=== PATIENT | female | born 1985 | race Two or more races ===

== ENCOUNTER 2024-03-04 17:22 | Emergency (ER) | payer MEDICAID, SELFPAY ==
[2024-03-04 17:23] VITALS: BMI 48.1
[2024-03-04 18:13] VITALS: BP 165/97; PULSE 103; RESP 18; TEMP 37.2; O2SAT 100
--- NOTE | 2024-03-04 18:21 | EKG_ITS ---
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
--- NOTE | 2024-03-04 18:40 | XR_ITS ---
Examination: PA lateral chest 2 views Technique: Upright PA lateral chest 2 views Exam date and time: March 04, 2024 1852 hrs. Comparison December 12, 2021 Indications: Chest pain beginning one week ago. Findings: Normal heart size Lungs are clear. The osseous structures are intact Impression: No active disease
--- NOTE | 2024-03-04 18:40 | EDRME_ITS ---
Rapid Medical Screening Exam [facility] Arrival date/time: 03/04/24 17:22 38F with history of HTN presents to ED with 1 week of cough and some CP, SOB, and heart palps. Chief Complaint: Chest Pain Time Seen by Provider: 03/04/24 18:24 Vital signs: Vital Signs Temperature 98.9 F 03/04/24 18:13 Pulse Rate 103 H 03/04/24 18:13 Respiratory Rate 18 03/04/24 18:13 Blood Pressure 165/97 H 03/04/24 18:13 Pulse Oximetry (%) 100 03/04/24 18:13 Oxygen Delivery Method Room Air 03/04/24 18:13
[2024-03-04 19:17] LABS: Basophils # (Auto) 0.1 Thou/mm3 (0.0-0.2); Basophils % (Auto) 1 % (0-2.5); Eosinophils # (Auto) 0.1 Thou/mm3 (0.0-0.5); Eosinophils % (Auto) 1 % (0-10); Hematocrit 37.2 % (36.0-46.0); Hemoglobin 12.7 g/dL (12.0-16.0); Immature Granulocytes % (Auto) 0 % (0-0); Immature Granulocytes Auto 0.02 Thou/mm3 (0.00-0.00); Lymphocytes # (Auto) 2.7 Thou/mm3 (1.0-4.8); Lymphocytes % (Auto) 26 % (10-50); Mean Corpuscular HGB Conc 34.1 g/dl (31.0-37.0); Mean Corpuscular Hemoglobin 29.3 pg (25.0-35.0); Mean Corpuscular Volume 86 fL (80-100); Monocytes # (Auto) 0.6 Thou/mm3 (0.0-0.8); Monocytes % (Auto) 6 % (0-12); Neutrophils # (Auto) 6.9 Thou/mm3 (1.8-7.7); Neutrophils % (Auto) 66 % (37-80); Nucleated Red Blood Cell % 0 /100 WBC (0); Platelet Count 318 Thou/mm3 (140-440); RDW Standard Deviation 42.3 fL (36.4-46.3); Red Blood Count 4.34 Miln/mm3 (4.00-5.20); White Blood Count 10.4 Thou/mm3 (3.6-11.0)
[2024-03-04 19:47] LABS: Collection Type, Urine Clean Catch
[2024-03-04 19:55] LABS: Alanine Aminotransferase 18 U/L (10-49); Albumin, Serum 4.8 gm/dL (3.5-5.0); Albumin/Globulin Ratio 1.5 (1.2-2.2); Alkaline Phosphatase 91 U/L (46-116); Anion Gap 8 (7-16); Aspartate Amino Transferase < 10 U/L (0-34); BUN/Creatinine Ratio 10 Ratio (12-20); Bilirubin,Total 0.5 mg/dL (0.3-1.2); Blood Urea Nitrogen 6 mg/dL (9-23); Calcium 9.6 mg/dL (8.3-10.6); Calcium (Corrected) 9.6 mg/dL (8.5-10.1); Chloride 103 mMol/L (98-107); Creatinine (Component) 0.6 mg/dL (0.6-1.3); Estimated Creatinine Clearance 156.1 mL/min (>60); Globulin 3.3 gm/dL (2.3-3.5); Glucose 94 mg/dL (74-106); Osmolality,Calculated 271 (275-295); Potassium 4.2 mMol/L (3.4-5.1); Sodium 137 mMol/L (136-145); Total Protein 8.1 gm/dL (5.7-8.2); Troponin I < 0.002 ng/mL (0.0-0.045); eGFR > 60 See Note
[2024-03-04 20:02] LABS: Bilirubin,Urine Negative (Negative); Blood,Urine Negative (Negative); Clarity,Urine Clear (Clear/Hazy); Color,Urine Colorless (Lt Yel-Yel); Glucose, Urine Negative (Negative); Ketones,Urine Negative (Negative); Leukocyte Esterase,Urine Negative (Negative); Nitrite,Urine Negative (Negative); PH,Urine 6.5 (5.0-7.0); Protein,Urine Negative (Neg - Trace); RBC,Urine < 1 /hpf (0-3); Specific Gravity,Urine 1.005 (1.001-1.035); Squamous Epithelial Cell,Urine < 1 /hpf (0-5); Urobilinogen,Urine Negative mg/dL (0.0-1.0); WBC,Urine < 1 /hpf (0-5)
[2024-03-04 20:06] LABS: Amphetamine/Methamp Scrn,U Negative (Negative); Barbiturate Screen,Urine Negative (Negative); Benzodiazepines Screen,Urine Negative (Negative); Benzoylecgonine Screen, Ur Negative (Negative); Fentanyl Screen,Urine Negative (Negative); Opiate Screen,Urine Negative (Negative); THC Screen,Urine Negative (Negative)
[2024-03-04 20:16] LABS: HCG Qualitative,Urine Negative
[2024-03-04 21:25] VITALS: BP 158/87; PULSE 87; RESP 20; TEMP 36.7; O2SAT 99
--- NOTE | 2024-03-04 21:25 | EDNOTE_ITS ---
ED General RME/HPI General Chief complaint: Chest Pain Stated complaint: L CHEST PAIN; PALPITATIONS @ 1400; SOB Time Seen by Provider: 03/04/24 18:24 Arrival date/time: 03/04/24 17:22 RME / HPI RME / HPI narrative: 38-year-old female patient with significant history of hypertension, came in for evaluation regarding palpitation, comes and goes, associated with shortness of breath, left-sided chest pain, nonproductive cough, sputum going for the last 1 week. It comes and goes, lasting for several minutes. Patient denies any other complaints. Denies any other complaints. Related Data Previous Rx's ?Medication ?Instructions ?Recorded albuterol sulfate 90 mcg/actuation 1 inh inhalation QID PRN shortness 12/05/19 aerosol inhaler (Ventolin HFA) of breath or wheezing #6.7 grams azithromycin 500 mg tablet See Rx Instructions PO .COMPLEX #3 12/05/19 tabs cephalexin 500 mg capsule 500 mg PO QID #40 caps 10/04/20 hydrocodone 5 mg-acetaminophen 325 1 tab PO BID PRN pain #14 tabs 10/04/20 mg tablet ibuprofen 800 mg tablet (IBU) 800 mg PO TID PRN fever or pain 10/04/20 #30 tabs ondansetron 4 mg disintegrating 4 mg PO Q8H PRN nausea and 11/14/21 tablet vomiting #15 tabs ibuprofen 600 mg tablet 600 mg PO TID PRN pain #30 tabs 12/27/22 acetaminophen 500 mg capsule 1,000 mg (2 x 500 mg) PO Q6H PRN 03/31/23 fever or pain #30 caps ibuprofen 800 mg tablet 800 mg PO TID PRN pain #30 tabs 03/31/23 tamsulosin 0.4 mg capsule (Flomax) 0.4 mg PO QDAY #14 caps 03/31/23 Allergies Allergy/AdvReac Type Severity Reaction Status Date / Time No Known Allergies Allergy Verified 03/04/24 17:26 Review of Systems Review of Systems Narrative Review of Systems: Review of system reviewed and within normal limits except mentioned in HPI ED Exam Narrative Physical exam: VITAL SIGNS: Reviewed. GENERAL APPEARANCE: Alert and interactive, follows commands, no acute distress, HEAD AND FACE: Non-traumatic. ENT: PERRL, pink conjunctivitis, eyelid no trauma, Mucous membrane moist. NECK: Supple, nontender, no nuchal rigidity. CHEST: No tenderness, no crepitus, no paradoxical movement, no retractions. LUNGS: Clear, well ventilated, symmetric, no rales, no wheezing, no ronchi, no stridor, good breath sounds bilaterally. HEART: Regular rate, regular rhythm, no murmur, no gallops. ABDOMEN: Soft, positive bowel sounds, nondistended, no guarding, nontender, no rebound, no masses, RECTAL: Deferred. GENITAL: Deferred. NEUROLOGICAL: Gross motor function intact sensory function intact, Appropriate for age. MUSCULOSKELETAL: low back nontender, full range of motion. EXTREMITIES: Nontender, full range of motion. SKIN: Color pink, dry, no rash, no lacerations, no abrasions, no contusions. LYMPHATICS: Deferred. Course Quality Measures none Orders Category Date Time Status Bedside COVID-19 Antigen Test NOW Care 03/04/24 18:40 Active Bedside Influenza A&B Antigen Test NOW Care 03/04/24 18:40 Completed EKG (ED ONLY) *Do not use* NOW Care 03/04/24 18:21 Completed EKG (ED Only) Stat Exams 03/04/24 18:21 Draft XR chest 2V Stat Exams 03/04/24 18:40 Completed CBC Stat Lab 03/04/24 18:50 Completed Comprehensive Metabolic Panel Stat Lab 03/04/24 18:50 Completed Drug Screen,Urine Stat Lab 03/04/24 19:12 Completed HCG Qualitative,Urine Stat Lab 03/04/24 19:12 Completed Troponin I Stat Lab 03/04/24 18:50 Completed Urinalysis Stat Lab 03/04/24 19:12 Completed Vital Signs Vital signs: Vital Signs Temperature 98.9 F 03/04/24 18:13 Pulse Rate 103 H 03/04/24 18:13 Respiratory Rate 18 03/04/24 18:13 Blood Pressure 165/97 H 03/04/24 18:13 Pulse Oximetry (%) 100 03/04/24 18:13 Oxygen Delivery Method Room Air 03/04/24 18:13 [facility] Patient data External records reviewed:: None Clinical information provided by:: patient Social determinants that could affect healthcare access:: none Patient has the following chronic illnesses:: None How is presenting disease/condition affected by chronic disease/condition?: no chronic disease Evaluation data The following diagnostics were reviewed and interpreted by me:: lab results, radiology exam(s) and EKG tracing(s) Lab and/or radiology exams considered but not ordered:: None Interpretation Summary: EKG as interpreted by me showed normal sinus rhythm, ventricular rate of 84 beats per minute, no ST segment elevation or depression noted. My imaging finding. Laboratory workup including troponin is normal. Medications Medications considered but not ordered:: None Medication administrations:: None Consultations Consultation(s) initiated? (list below): No Diagnosis Differential Diagnosis ED Complaint MDM: Palpitation, chest pain, shortness of breath Most likely diagnosis given after review of the tests above:: Pelvic lesion, Admission Indicated Admission indicated?: not indicated Explain why admission is indicated or not indicated:: Stable for discharge Admission Request Was there a request for admission?: No Disposition Plan Disposition Plan: Discharge Discharge Attestation Discharge Attestation: The patient was given an opportunity to ask questions and understood the discharge instructions. Discharge instructions specifically effects, indications for sooner follow up or return to the emergency department, and the expected course of current diagnosis. Patient condition: Stable Medical Decision Making Differential Diagnosis Differential Diagnosis: Palpitation, chest pain, shortness of breath Lab Data 03/04/24 18:50 03/04/24 18:50 Labs: Lab Results 03/04/24 03/04/24 Range/Units 18:50 19:12 WBC 10.4 (3.6-11.0) Thou/mm3 RBC 4.34 (4.00-5.20) Miln/mm3 Hgb 12.7 (12.0-16.0) g/dL Hct 37.2 (36.0-46.0) % MCV 86 (80-100) fL MCH 29.3 (25.0-35.0) pg MCHC 34.1 (31.0-37.0) g/dl RDW Std Deviation 42.3 (36.4-46.3) fL Plt Count 318 (140-440) Thou/mm3 Neut % (Auto) 66 (37-80) % Lymph % (Auto) 26 (10-50) % [place] % (Auto) 6 (0-12) % Eos % (Auto) 1 (0-10) % Baso % (Auto) 1 (0-2.5) % Neut # (Auto) 6.9 (1.8-7.7) Thou/mm3 Lymph # (Auto) 2.7 (1.0-4.8) Thou/mm3 [place] # (Auto) 0.6 (0.0-0.8) Thou/mm3 Eos # (Auto) 0.1 (0.0-0.5) Thou/mm3 Baso # (Auto) 0.1 (0.0-0.2) Thou/mm3 Immature Gran # (Auto) 0.02 H (0.00-0.00) Thou/mm3 Absolute Nucleated RBC 0.00 (0.00-0.00) Thou/mm3 Immature Gran % 0 (0-0) % Nucleated RBC % 0 (0) /100 WBC Sodium 137 (136-145) mMol/L Potassium 4.2 (3.4-5.1) mMol/L Chloride 103 (98-107) mMol/L Carbon Dioxide 26.0 (20.0-31.0) mMol/L Anion Gap 8 (7-16) BUN 6 L (9-23) mg/dL Creatinine 0.6 (0.6-1.3) mg/dL Estim Creat Clear Calc 156.1 (>60) mL/min eGFR > 60 (60 - ) See Note BUN/Creatinine Ratio 10 L (12-20) Ratio Glucose 94 (74-106) mg/dL Calculated Osmolality 271 L (275-295) Calcium 9.6 (8.3-10.6) mg/dL Corrected Calcium 9.6 (8.5-10.1) mg/dL Total Bilirubin 0.5 (0.3-1.2) mg/dL AST < 10 (0-34) U/L ALT 18 (10-49) U/L Alkaline Phosphatase 91 (46-116) U/L Troponin I < 0.002 (0.0-0.045) ng/mL Total Protein 8.1 (5.7-8.2) gm/dL Albumin 4.8 (3.5-5.0) gm/dL Globulin 3.3 (2.3-3.5) gm/dL Albumin/Globulin Ratio 1.5 (1.2-2.2) Ur Collection Type Clean Catch Urine Color Colorless A (Lt Yel-Yel) Urine Clarity Clear (Clear/Hazy) Urine pH 6.5 (5.0-7.0) Ur Specific [place] 1.005 (1.001-1.035) Urine Protein Negative (Neg - Trace) Urine Glucose (UA) Negative (Negative) Urine Ketones Negative (Negative) Urine Blood Negative (Negative) Urine Nitrite Negative (Negative) Urine Bilirubin Negative (Negative) Urine Urobilinogen (Auto) Negative (0.0-1.0) mg/dL Ur Leukocyte Esterase Negative (Negative) Urine RBC < 1 (0-3) /hpf Urine WBC < 1 (0-5) /hpf Ur Squamous Epith Cells < 1 (0-5) /hpf Urine Bacteria None (None) Urine HCG, Qual Negative Urine Opiates Screen Negative (Negative) Urine Fentanyl Screen Negative (Negative) Ur Barbiturates Screen Negative (Negative) U Amphetamin/Meth Scrn Negative (Negative) U Benzodiazepines Scrn Negative (Negative) U Cocaine Metab Screen Negative (Negative) U Marijuana (THC) Screen Negative (Negative) Discharge Plan Plan Patient Disposition: HOME (Self Care) Disposition Comment: Stable Prescriptions/Referrals Prescriptions/Med Rec: No Action cephalexin 500 mg capsule 500 mg PO QID Qty: 40 0RF ibuprofen [IBU] 800 mg tablet 800 mg PO TID PRN (Reason: fever or pain) Qty: 30 0RF hydrocodone-acetaminophen 5-325 mg tablet 1 tab PO BID MDD 3 PRN (Reason: pain) Qty: 14 0RF azithromycin 500 mg tablet See Rx Instructions .ROUTE .COMPLEX Qty: 3 0RF Rx Instructions: take 500 mg today (day 1), then 250 mg for 4 days (days 2-5) albuterol sulfate [Ventolin HFA] 90 mcg/actuation HFA aerosol inhaler 1 inh IH QID PRN (Reason: shortness of breath or wheezing) Qty: 6.7 0RF ondansetron 4 mg tablet,disintegrating 4 mg PO Q8H PRN (Reason: nausea and vomiting) Qty: 15 0RF ibuprofen 600 mg tablet 600 mg PO TID PRN (Reason: pain) Qty: 30 0RF acetaminophen 500 mg capsule 1,000 mg PO Q6H PRN (Reason: fever or pain) Qty: 30 0RF ibuprofen 800 mg tablet 800 mg PO TID PRN (Reason: pain) Qty: 30 0RF tamsulosin [Flomax] 0.4 mg capsule 0.4 mg PO QDAY Qty: 14 0RF Rx Instructions: administer 30 minutes after same meal each day; swallow whole with liquid; do not crush/chew/dissolve/open Referrals: Amanda Burgess FNP [Primary Care Provider] - In 1 week Problem List Clinical Impression: Palpitation Patient/Caregiver Discharge Instructions Discharge Activity: activity as tolerated Education Materials: ED Palpitations Additional Instructions: Thank you for the opportunity for serving you today. You are stable for discharged . You are advised to: Follow-up with your PCP in 1 to 2 days Return to ED for worsening of symptoms Print Language: Mohawk Stand Alone Forms: Salud Award Info., Patient Portal Info Letter BEV/JOSE ALBERTO Supervising Physician BEV/JOSE ALBERTO Supervising Physician: MD Jordyn
[2024-03-04 21:32] VITALS: BP 137/64; PULSE 89; RESP 19; TEMP 36.6; O2SAT 99
== END 2024-03-04 21:32 | disposition home or self-care (01) ==
PROVIDERS: Physician Assistant; Emergency Provider Emergency Medicine; PCP Registered Nurse Community Health
DX: R00.2 Palpitations (principal); R07.89 Other chest pain
CPT/HCPCS: 36415; 71046; 80053; 80307; 81001; 81025; 84484; 85025; 87400; 87811; 93005; 99283

== ENCOUNTER 2024-05-27 12:35 | Emergency (ER) | payer MEDICAID, SELFPAY ==
[2024-05-27 12:47] VITALS: BP 189/108; PULSE 101; RESP 18; TEMP 37; O2SAT 96; BMI 47.5
--- NOTE | 2024-05-27 13:00 | PD.EDADULT ---
ED General RME/HPI General Chief complaint: General Adult/Misc Complain Stated complaint: SHAKING, TROUBLE BREATHING Time Seen by Provider: 05/27/24 12:59 Arrival date/time: 05/27/24 12:35 CC: Intermittent chest pain HPI ongoing for the past 1 week, currently no chest pain whatsoever patient is very anxious and thinks this is all anxiety driven but wanted to have it checked out patient is afebrile nontoxic-appearing not in any acute distress he is recently lost over 60 pounds going down from 3 30-2 60. She is awake alert oriented and does not appear anxious at this time. Related Data Previous Rx's ?Medication ?Instructions ?Recorded albuterol sulfate 90 mcg/actuation 1 inh inhalation QID PRN shortness 12/05/19 aerosol inhaler (Ventolin HFA) of breath or wheezing #6.7 grams azithromycin 500 mg tablet See Rx Instructions PO .COMPLEX #3 12/05/19 tabs cephalexin 500 mg capsule 500 mg PO QID #40 caps 10/04/20 hydrocodone 5 mg-acetaminophen 325 1 tab PO BID PRN pain #14 tabs 10/04/20 mg tablet ibuprofen 800 mg tablet (IBU) 800 mg PO TID PRN fever or pain 10/04/20 #30 tabs ondansetron 4 mg disintegrating 4 mg PO Q8H PRN nausea and 11/14/21 tablet vomiting #15 tabs ibuprofen 600 mg tablet 600 mg PO TID PRN pain #30 tabs 12/27/22 acetaminophen 500 mg capsule 1,000 mg (2 x 500 mg) PO Q6H PRN 03/31/23 fever or pain #30 caps ibuprofen 800 mg tablet 800 mg PO TID PRN pain #30 tabs 03/31/23 tamsulosin 0.4 mg capsule (Flomax) 0.4 mg PO QDAY #14 caps 03/31/23 Allergies Allergy/AdvReac Type Severity Reaction Status Date / Time No Known Allergies Allergy Verified 05/27/24 12:37 Review of Systems Review of Systems Narrative Review of Systems: GEN: + fever, no chills, no weight loss EYES: No discharge, no visual changes, no pain HEENT: No ear pain, no congestion, no sore throat PULM: No shortness of breath, + cough, no congestion CV: No chest pain, no dyspnea on exertion, no palpitations GI: No nausea, no vomiting, no diarrhea, no pain, no constipation : No frequency, no urgency, no dysuria MUSC/SKEL: No joint pain, no back pain SKIN: No rash PSYCH: No hallucinations, no depression HEME/LYMPH: No easy bleeding or bruising tendencies NEURO: No weakness, no headache Past Medical History Past Medical History CARDIAC: Positive Cardiac Disorders and Hypertension; Negative Congestive Heart Failure RESPIRATORY: Negative Chronic Obstructive Pulmonary Disease (COPD) GENITOURINARY: Negative Renal Disease ENDOCRINE: Negative Diabetes Mellitus Type 1 or Diabetes Mellitus Type 2 Surgical History SURGICAL: Positive Section Social History SMOKING STATUS: Never smoker ED Exam Narrative Physical exam: [General: Obese, not in any acute distress Head normocephalic HEENT: Within acceptable limits Neck is supple nontender Chest equal chest rise nontender to palpation Respiratory: Clear to auscultation no wheezes crackles or rubs CV: Rate rhythm is regular, tachycardic, no murmurs rubs or clicks Abdomen is soft nontender no masses positive bowel sounds all 4 quadrants Back: Mild paraspinal tenderness in the mid thoracic range, site-specific and reproducible with palpation. Skin: Intact no petechiae rash induration ulceration or crepitus Extremities: Moving all extremity against resistance cap refill less than 2 seconds neurosensory intact Neuro: Awake alert oriented x3 Glascow coma 15 no focal deficits] Course Quality Measures none Orders Category Date Time Status EKG (ED ONLY) *Do not use* NOW Care 05/27/24 13:08 Completed EKG (ED Only) Stat Exams 05/27/24 13:08 Draft Acetaminophen Tab [Tylenol Tab] Med 05/27/24 12:59 Discontinued 650 mg PO X1 ONE Vital Signs Vital signs: Vital Signs Temperature 98.6 F 05/27/24 12:47 Pulse Rate 101 H 05/27/24 12:47 Respiratory Rate 18 05/27/24 12:47 Blood Pressure 189/108 H 05/27/24 12:47 Pulse Oximetry (%) 96 05/27/24 12:47 Oxygen Delivery Method Room Air 05/27/24 12:47 [facility] Patient data External records reviewed:: [facility] previous records Clinical information provided by:: patient Social determinants that could affect healthcare access:: none Patient has the following chronic illnesses:: None How is presenting disease/condition affected by chronic disease/condition?: uneffected by Evaluation data The following diagnostics were reviewed and interpreted by me:: lab results and radiology exam(s) Lab and/or radiology exams considered but not ordered:: EKG performed at 1316 shows a ventricular rate of 84 CO interval 156 QRS of 9 0 QTc of 402 this is normal sinus rhythm normal EKG. Interpretation Summary: I suspect this is all anxiety driven, the patient is not short of breath. The all the back pain is secondary to musculature as it is reproducible with palpation site-specific. Medications Medications considered but not ordered:: None Medication administrations:: Medication Administration History Discontinued Medications Acetaminophen (Acetaminophen 325 Mg Tablet) 650 mg PO X1 ONE Stop: 05/27/24 13:00 Last Admin: 05/27/24 13:35 Dose: 650 mg Documented By: None Consultations Consultation(s) initiated? (list below): No Diagnosis Differential Diagnosis ED Complaint MDM: ACS PR pneumonia Most likely diagnosis given after review of the tests above:: Chest pain anxiety Admission Indicated Admission indicated?: not indicated Explain why admission is indicated or not indicated:: Stable for outpatient follow-up Admission Request Was there a request for admission?: No Disposition Plan Disposition Plan: Discharge Discharge Attestation Discharge Attestation: The patient and all family members were given an opportunity to ask questions and understood the discharge instructions. Discharge instructions specifically effects, indications for sooner follow up or return to the emergency department, and the expected course of current diagnosis. Patient condition: Stable Medical Decision Making Differential Diagnosis Differential Diagnosis: ACS PR pneumonia Discharge Plan Plan Patient Disposition: HOME (Self Care) Patient condition on transfer: Stable Prescriptions/Referrals Prescriptions/Med Rec: No Action cephalexin 500 mg capsule 500 mg PO QID Qty: 40 0RF ibuprofen [IBU] 800 mg tablet 800 mg PO TID PRN (Reason: fever or pain) Qty: 30 0RF hydrocodone-acetaminophen 5-325 mg tablet 1 tab PO BID MDD 3 PRN (Reason: pain) Qty: 14 0RF azithromycin 500 mg tablet See Rx Instructions .ROUTE .COMPLEX Qty: 3 0RF Rx Instructions: take 500 mg today (day 1), then 250 mg for 4 days (days 2-5) albuterol sulfate [Ventolin HFA] 90 mcg/actuation HFA aerosol inhaler 1 inh IH QID PRN (Reason: shortness of breath or wheezing) Qty: 6.7 0RF ondansetron 4 mg tablet,disintegrating 4 mg PO Q8H PRN (Reason: nausea and vomiting) Qty: 15 0RF ibuprofen 600 mg tablet 600 mg PO TID PRN (Reason: pain) Qty: 30 0RF acetaminophen 500 mg capsule 1,000 mg PO Q6H PRN (Reason: fever or pain) Qty: 30 0RF ibuprofen 800 mg tablet 800 mg PO TID PRN (Reason: pain) Qty: 30 0RF tamsulosin [Flomax] 0.4 mg capsule 0.4 mg PO QDAY Qty: 14 0RF Rx Instructions: administer 30 minutes after same meal each day; swallow whole with liquid; do not crush/chew/dissolve/open Problem List Clinical Impression: Chest pain Patient/Caregiver Discharge Instructions Education Materials: ED Chest Pain, Uncertain Cause Additional Instructions: I do not feel that this is cardiac in nature. Patient will follow-up with a primary care provider. If there is worsening symptoms again return the emergency room medially for further evaluation. Print Language: Maori Stand Alone Forms: Salud Award Info., Work/School Release, Patient Portal Info Letter PA/TIGHTENING MACHINE OPERATOR Supervising Physician PA/TIGHTENING MACHINE OPERATOR Supervising Physician: Aaron Austin ENP
--- NOTE | 2024-05-27 13:08 | EKG_ITS ---
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
[2024-05-27] MEDS: ACETAMINOPHEN 325 MG TABLET 650 MG PO (13:35)
== END 2024-05-27 13:59 | disposition home or self-care (01) ==
LOC: SERX 13:54
PROVIDERS: Emergency Provider Emergency Medicine
DX: R07.89 Other chest pain (principal)
CPT/HCPCS: 93005; 99283; A9270

== ENCOUNTER → 2024-08-20 | Outpatient (CLI) | payer BC, SELFPAY ==
--- NOTE | 2024-08-20 | XR_ITS ---
Examination: Breast ultrasound complete, bilateral Date and time of exam: August 20, 2024 0750 hours INDICATIONS: Bilateral nipple pain 6 months Technique: Real-time grayscale ultrasonographic imaging bilateral breasts, including all 4 quadrants as well as nipple retroareolar and axillary regions. Findings: No cystic or solid mass IMPRESSION: BI-RADS Category 1: Negative studies
== END | disposition home or self-care (01) ==
LOC: CDIM 07:22
PROVIDERS: PCP Registered Nurse Community Health; Referring Provider Registered Nurse Community Health; Visit Provider Registered Nurse Community Health
DX: N64.4 Mastodynia (principal)
CPT/HCPCS: 76641